=== PATIENT | female | born 1985 | race Caucasian/White ===

== ENCOUNTER 2024-10-17 00:34 | Day surgery (SDC) | payer OTHER, SELFPAY ==
--- NOTE | 2024-10-12 15:21 | PC.NURSE ---
Email sent to Loretta Bill at health system for patient to hold iron supplement as of today 10/12/2024. She emailed back info. sent to approp. area.
--- OUTSIDE RECORDS SUMMARY | 2024-10-17 00:39 | XMS_ITS | Continuity of Care Document ---
Author Organization [facility] Address [address] [place] [address] [address] [place] [address] Phone Care Team Providers Care Border Measurer Name Role Phone YARED HUYNH Unavailable Unavailable Advance Directives Directive Yes / No Effective Date File Name No Information Encounters Encounter Description Practice Location Reason(s) For Visit Diagnoses Date Provider Providers Copied on Encounter [facility], [address] [place] [address] [address], [place], [address], [place] tel:[phone] [facility] Medical [facility] No Information [address], [place], [address], [place]. tel:[phone] Family History Family Member Type Diagnosis Age At Onset No Information Payers Payer name Insurance type Covered alliance party ID Authoriza tion(s) No Information Social History Type Description Quantity Date Captured Comments Sex Female Smoking Status No Information Chief Complaint And Reason For Visit No Information History Of Present Illness Encounter Date Complaint History Of Prese nt Illness No Information Instructions Date Instruction Additional Infor mation No Information Assessments Type Assessment Date No Information
--- OUTSIDE RECORDS SUMMARY | 2024-10-17 00:39 | XMS_ITS | Continuity of Care Document ---
Author Organization [facility] Address [address] [place] [address] Phone Care Team Providers Care Energy Operations Vice President Name Role Phone Patrick COKER, Taty Unavailable Unavailable Advance Directives Directive Yes / No Effective Date File Name No Information Encounters Encounter Description Practice Location Reason(s) For Visit Diagnoses Date Provider Providers Copied on Encounter [facility], [address], [place], [place], [id number], [place] tel:[phone] [facility] No Information Patrick Posey. [address] [address], [place], [place], [id number], [place]. tel:[phone] Referring Provider: True Miles [address] [address], [place], [address]. tel:[phone] Family History Family Member Type Diagnosis Age At Onset No Information Payers Payer name Insurance type Covered democrat ID Authoriza tion(s) [facility] [id number] Social History Type Description Quantity Date Captured Comments Sex Female Smoking Status No Information Chief Complaint And Reason For Visit No Information Reason For Referral Reason For Referral No Information History Of Present Illness Encounter Date Complaint History Of Prese nt Illness No Information Functional Status Date Functional Assessmen t No Information Instructions Date Instruction Additional Infor mation No Information Assessments Type Assessment Date No Information Patient Care Teams Name Effective Dates (start - stop) Status Members No Information
--- OUTSIDE RECORDS SUMMARY | 2024-10-17 00:39 | XMS_ITS | Clinical Summary ---
Author Organization [facility] Address [address] [place] [address] Phone Care Team Providers Care Crimping Machine Operator Name Role Phone Provider, Not On File Primary Care Provider Meme Boyd MD Unavailable Allergies Active Allergy Reactions Criticality Noted Date Comments Iodine Unknown 09/04/2024 Penicillin V Unknown 09/04/2024 Medications ALBUTEROL IN take by inhalation. Active ferrous sulfate 325 (65 Fe) MG Tablet Take 325 mg by mouth daily. Active Ascorbic Acid (VITAMIN C PO) Take by mouth. Active ibuprofen (MOTRIN) 600 MG Tablet Take 600 mg by mouth every 6 hours as needed. Active IMIPRAMINE HCL PO Take by mouth. Active topiramate (TOPAMAX) 100 MG Tablet Take 100 mg by mouth 2 times daily. Active Active Problems Problem Noted Date Diagnosed Date Iron deficiency anemia 09/04/2024 Encounters Date Type Department Care Team Description 09/25/2024 8:30 AM CDT Clinical Support [facility] [address] [place] [address] Iron deficiency anemia, unspecified iron deficiency anemia type (Primary Dx) 09/25/2024 Travel 09/04/2024 10:30 AM CDT Clinical Support [facility] [address] [place] [address] Nurse, Melisa Ford Iron deficiency anemia, unspecified iron deficiency anemia type (Primary Dx) 09/04/2024 9:45 AM CDT Office Visit [facility] [address] [place] [address] Meme Spangler MD Iron deficiency anemia, unspecified iron deficiency anemia type (Primary Dx); Other fatigue 09/04/2024 Telephone [facility] [address] [facility] [address] [place] [address] Meme Spangler MD 09/04/2024 Travel from Last 3 Months Family History Medical History Relation Name Comments Hypertension Father Stroke Father Hypertension Mother Stroke Mother Relation Name Status Comments Father Alive Mother Alive Social History Tobacco Use Types Packs/Day Years Used Date Smoking Tobacco: Former Cigarettes 1 10.1 S tarted: 09/04/2014 Smokeless Tobacco: Never Tobacco Cessation:Counseling Given: No Alcohol Use Standard Drinks/Week Comments Never 0 (1 standard drink = 0.6 oz pur e alcohol) Sexually Active Control Partners Comments Not Currently Comments Unknown Sex and Gender Information Value Date Recorded Sex Assigned at Not on file Legal Sex Female 11:16 AM CDT Gender Identity Not on file Sexual Orientation Not on file Last Filed Vital Signs Vital Sign Reading Time Taken Comments Blood Pressure 122/78 09/04/2024 9:42 AM CDT Pulse 99 09/04/2024 9:42 AM CDT Temperature 37 C (98.6 F) 09/04/2024 9:42 AM CDT Respiratory Rate - - Oxygen Saturation 97% 09/04/2024 9:42 AM CDT Inhaled Oxygen Concentration - - Weight 78.9 kg (174 lb) 09/04/2024 9:42 AM CDT Height 168.9 cm (5' 6.5) 09/04/2024 9:42 AM CDT Body Mass Index 27.66 09/04/2024 9:42 AM CDT Plan of Treatment Upcoming Encounters Date Type Department Care Team (Late st Contact Info) Description 10/30/2024 9:00 AM CDT [facility] [address] [place] [address] Meme Spangler MD [address] [place] [address] Health Maintenance Due Date Last Done Comments Hepatitis C Virus (HCV) Screening 1984 Mammogram 1984 TdaP Immunization 1984 Human Papillomavirus (HPV) Immunization (1 - 3-dose series) 09/22/1999 Hepatitis B Immunization (1 of 3 - 19+ 3-dose series) 09/22/2003 SARS-COV-2 Immunization ( season) 2023 Discussion re Starting/Frequ ency of Mammograms 2024 Influenza Immunization (#1) 2024 Respiratory Syncytial Virus (RSV) Immunization (Adult) (1 - 1-dose 75+ series) 09/22/2059 Meningococcal Immunization (ACWY) Aged Out No longer eligible based on patient's age to complete this topic Pneumococcal Immunization Combined Aged Out No longer eligible based on patient's age to complete this topic Rotavirus Immunization Aged Out No lo nger eligible based on patient's age to complete this topic Procedures Procedure Name Priority Date/Time Associated Diagnosis Comments CBC WITH AUTO DIFF OH Routine 09/04/2024 10:30 AM CDT FERRITIN Routine 09/04/2024 10:30 AM CDT Iron deficiency anemia, unspecified iron deficiency anemia type IRON W/ IRON BINDING CAPACITY OH Routine 09/04/2024 10:30 AM CDT Iron deficiency anemia, unspecified iron deficiency anemia type RETICULOCYTE COUNT (RETIC) Routine 09/04/2024 10:30 AM CDT Iron deficiency anemia, unspecified iron deficiency anemia type from Last 3 Months Results * (ABNORMAL) IRON W/ IRON BINDING CAPACITY OH (09/04/2024 10:30 AM CDT) IRON 33(L) 50 - 212 ug/dL CANCER WOOD DOWEL MACHINE OPERATOR [facility] UIBC 398(H) 155 - 355 ug/dL CANCER WOOD DOWEL MACHINE OPERATOR [facility] TIBC 431 261 - 478 ug/dl CANCER WOOD DOWEL MACHINE OPERATOR [facility] % Saturation 8(L) 20 - 50 % CANCER WOOD DOWEL MACHINE OPERATOR [facility] 09/04/2024 10:3 0 AM CDT Narrative CANCER WOOD DOWEL MACHINE OPERATOR [facility] - 09/05/2024 2:51 PM CDT Release to patient->Immediate Meme Spangler MD LAB SEND OUTS Final Result CANCER WOOD DOWEL MACHINE OPERATOR [facility] [place] [address], * (ABNORMAL) CBC WITH AUTO DIFF OH (09/04/2024 10:30 AM CDT) WBC 6.6 4.0 - 10.0 10*3/uL CANCER WOOD DOWEL MACHINE OPERATOR [facility] HGB 11.1(L) 11.2 - 15.7 g/dL CANCER WOOD DOWEL MACHINE OPERATOR [facility] HCT 36.1 34.1 - 44.9 % CANCER WOOD DOWEL MACHINE OPERATOR [facility] PLT 336 163 - 369 10*3/uL CANCER WOOD DOWEL MACHINE OPERATOR [facility] MPV 11.0 9.4 - 12.4 fL CANCER WOOD DOWEL MACHINE OPERATOR [facility] RBC 4.46 3.93 - 5.22 10*6/uL CANCER WOOD DOWEL MACHINE OPERATOR [facility] MCV 81 79 - 95 fL CANCER WOOD DOWEL MACHINE OPERATOR [facility] MCH 24.9(L) 25.6 - 32.2 pg CANCER WOOD DOWEL MACHINE OPERATOR [facility] MCHC 30.7(L) 32.2 - 36.5 g/dL CANCER WOOD DOWEL MACHINE OPERATOR [facility] RDW 16.3(H) 11.6 - 14.4 % CANCER WOOD DOWEL MACHINE OPERATOR [facility] Neutrophils % 71.7(H) 36.0 - 66.0 % CANCER WOOD DOWEL MACHINE OPERATOR [facility] Lymphocytes % 21.1 19.0 - 40.0 % CANCER WOOD DOWEL MACHINE OPERATOR [facility] Monocytes % 5.4 4.1 - 12.1 % CANCER WOOD DOWEL MACHINE OPERATOR [facility] Eosinophils % 0.9 0.0 - 3.5 % CANCER WOOD DOWEL MACHINE OPERATOR [facility] Basophils % 0.6 0.0 - 1.0 % CANCER WOOD DOWEL MACHINE OPERATOR [facility] Absolute Neutrophils 4.8 1.4 - 6.6 10*3/uL CANCER WOOD DOWEL MACHINE OPERATOR [facility] Absolute Lymphocytes 1.4 0.8 - 4.0 10*3/uL CANCER WOOD DOWEL MACHINE OPERATOR [facility] Absolute Monocytes 0.4 0.2 - 1.2 10*3/uL CANCER WOOD DOWEL MACHINE OPERATOR [facility] Absolute Eosinophils 0.1 0.0 - 0.4 10*3/uL CANCER WOOD DOWEL MACHINE OPERATOR [facility] Absolute Basophils 0.0 0.0 - 0.1 10*3/uL CANCER WOOD DOWEL MACHINE OPERATOR [facility] 09/04/2024 10:3 0 AM CDT us Meme Spangler MD LAB SEND OUTS Final Result Performing Organization Address [facility] de Phone Number CANCER WOOD DOWEL MACHINE OPERATOR [facility] [address] [place] [address], * RETICULOCYTE COUNT (RETIC) (09/04/2024 10:30 AM CDT) Reticulocyte count 0.98 0.50 - 1.70 % CANCER WOOD DOWEL MACHINE OPERATOR [facility] RET-He 29.50 28.20 - 36.60 pg CANCER WOOD DOWEL MACHINE OPERATOR [facility] Comment: RET-He is a direct assessment of incorporation of iron into erythrocyte hemoglobin. It provides an indirect measure of the iron available for new erythropoiesis over past 2-4 days. Blood 09/04/2024 10:3 0 AM CDT us Meme Spangler MD HEMATOLOGY ORDERABLES Final Resu lt Performing Organization Address [facility] de Phone Number [facility] [place] [address], * (ABNORMAL) FERRITIN (09/04/2024 10:30 AM CDT) Ferritin 7(L) 11 - 307 ng/mL [facility] Blood 09/04/2024 10:3 0 AM CDT Narrative [facility] - 09/06/2024 2:28 PM CDT Release to patient->Immediate us Meme Spangler MD CHEMISTRY ORDERABLES Final Resul t Performing Organization Address [facility] de Phone Number [facility] [address] [place] [address], [place] [phone] from Last 3 Months Insurance [employer] Care Teams Crimping Machine Operator Relationship Specialty Start Date End Date Provider, Not On File [place] PCP - General 07/11/24 Meme Spangler MD [address] [place], [place] [address] Consulting Physician Oncology 07/11/24
[2024-10-17 07:47] VITALS: BP 120/76; PULSE 54; RESP 18; TEMP 36.5; O2SAT 100; BMI 25.6
[2024-10-17] MEDS: LACTATED RINGERS 1,000 ML 150 ML IV CONT (07:58)
--- NOTE | 2024-10-17 08:37 | PM.IMHP ---
H&P: HPI History of Present Illness Date/Time: 10/17/24 08:37 Chief Complaint: iron deficiency anemia, positive fit Narrative: this is a 39-year-old woman who presents for EGD and colonoscopy. She has a history of anemia but denies any noticeable hematochezia or melena. She recently had a positive fit test. She has never had a colonoscopy before. She has no first-degree relative family history of colon cancer. She denies acid reflux or heartburn. Review of Systems Review of Systems: All systems reviewed & are unremarkable except as noted in HPI and below Constitutional: Constitutional: Denies chills, Denies fever(s), Denies headache(s) and Denies weight loss Eyes: Eyes: Denies change in vision ENT: Denies dizziness, Denies headache(s), Denies neck mass and Denies throat swelling Cardiovascular: Cardiovascular: Denies chest pain, Denies lightheadedness and Denies dyspnea Respiratory: Respiratory: Denies cough, Denies dyspnea and Denies wheezing Gastrointestinal: Gastrointestinal: Denies abdominal pain, Denies change in bowel habits, Denies nausea and Denies vomiting Genitourinary: Genitourinary: Denies hematuria and Denies dysuria Musculoskeletal: Musculoskeletal: Reports as per HPI Integumentary/Breasts: Skin/Breast: Reports as per HPI Neurologic: Denies dizziness and Denies headache(s) Allergic/Immunologic: Allergic/Immunologic: Denies throat swelling and Denies wheezing PMFSH Social History Social History Living arrangements: incarcerated Meds Home Medications and Allergies Home Medications ?Medication ?Instructions ?Recorded ?Confirmed ?Type albuterol sulfate 90 mcg/actuation 2 inh inhalation QID PRN shortness 10/12/24 10/17/24 History aerosol inhaler (Ventolin HFA) of breath or wheezing ascorbic acid (vitamin C) 1 tablet PO DAILY 10/12/24 10/17/24 History ferrous sulfate 325 mg (65 mg 325 mg PO DAILY 10/12/24 10/17/24 History iron) tablet ibuprofen 600 mg tablet (IBU) 600 mg PO BID PRN pain 10/12/24 10/17/24 History topiramate 100 mg tablet 100 mg PO BID 10/12/24 10/17/24 History Allergies Allergy/AdvReac Type Severity Reaction Status Date / Time iodine Allergy Unknown Unknown Verified 10/17/24 07:46 penicillin V Allergy Unknown Unknown Verified 10/17/24 07:46 Vital Signs Vital Signs - 24 hr 10/17/24 07:47 Temperature 97.7 F Pulse Rate 54 L Respiratory Rate 18 Blood Pressure 120/76 Pulse Oximetry 100 Oxygen Delivery Room Air Exam Const: General: no acute distress and alert Orientation/consciousness: patient oriented x3 HENMT: Head: normocephalic and atraumatic Ears: hearing grossly normal bilaterally Face/Nose/Sinus: Normal nares present Mouth: Yes Normal oral and palatal mucosa present Eyes: Periorbital: periorbital findings normal Sclera: sclerae normal EOM: EOMs intact bilaterally Neck: Neck: normal visual inspection, no lymphadenopathy and trachea midline Chest: Chest palpation & inspection: normal inspection of the chest Resp: Effort & Inspection: normal respiratory effort Auscultation: clear to auscultation bilaterally Cardio: Jugular venous distension: no JVD Rate: regular rate Rhythm: regular rhythm Heart sounds: S1 normal heart sound present and S2 normal heart sound present Peripheral pulses: Peripheral pulses 2+ throughout GI: Inspection: normal to inspection GI Palp: Yes Soft to palpation, No Tenderness to palpation present (GI), No Guarding due to palpation present (GI) and No Rebound tenderness present Percussion: Yes normal to percussion Auscultation: normal bowel sounds : General: Yes no CVA tenderness Back/Spine/Pelvis: Back: no CVA tenderness Neuro: General: patient oriented x3, no focal motor deficits and CN's II-XI intact bilaterally Cognition (Neuro): normal cognition Speech: normal speech Motor exam (neuro): 5/5 motor strength present throughout Extrem: General: capillary refill normal and no clubbing, cyanosis or edema Assessment and Plan Assessment and plan (1) Anemia: Qualifiers: Anemia type: iron deficiency Iron deficiency anemia type: chronic blood loss Qualified Code(s): D50.0 - Iron deficiency anemia secondary to blood loss (chronic) Code(s): D64.9 - Anemia, unspecified Status: Acute Assessment and Plan: I have recommended EGD and colonoscopy. I have discussed the procedure, risks, benefits, and alternatives. Questions were answered. Patient is agreeable to proceed. (2) Positive FIT (fecal immunochemical test): Code(s): R19.5 - Other fecal abnormalities Status: Acute
--- NOTE | 2024-10-17 08:40 | WPDANESEPPF ---
Anes - Initial Pre Proc Eval Procedure: Operation Date: 10/17/24 09:00 Proposed Procedures p Esophagogastroduodenoscopy & Colonoscopy - Harsha Garcia DO Date/Time: 10/17/24 08:40 Surgeon: Harsha Garcia DO Pre Op Diagnosis: Positive fit test and anemia Patient Data Age: 39 Gender: F Height: 1.68 m Weight: 72.1 kg Last Vital Signs Temp 97.7 F 10/17/24 07:47 Pulse 54 L 10/17/24 07:47 Resp 18 10/17/24 07:47 BP 120/76 10/17/24 07:47 Pulse Ox 100 10/17/24 07:47 O2 Del Method Room Air 10/17/24 07:47 Allergies Allergy/AdvReac Type Severity Reaction Status Date / Time iodine Allergy Unknown Unknown Verified 10/17/24 07:46 penicillin V Allergy Unknown Unknown Verified 10/17/24 07:46 Home Medications ?Medication ?Instructions ?Recorded ?Confirmed ?Type albuterol sulfate 90 mcg/actuation 2 inh inhalation QID PRN shortness 10/12/24 10/17/24 History aerosol inhaler (Ventolin HFA) of breath or wheezing ascorbic acid (vitamin C) 1 tablet PO DAILY 10/12/24 10/17/24 History ferrous sulfate 325 mg (65 mg 325 mg PO DAILY 10/12/24 10/17/24 History iron) tablet ibuprofen 600 mg tablet (IBU) 600 mg PO BID PRN pain 10/12/24 10/17/24 History topiramate 100 mg tablet 100 mg PO BID 10/12/24 10/17/24 History Patient hx anesthesia problems: none Family hx anesthesia problems: none Results Review: All pre-operative results and documents have been reviewed as part of the pre-operative evaluation. [facility] Social History Social History Living arrangements: incarcerated Anes - Eval Final PreProcedure Day of Procedure 10/17/24 08:40 Patient weight: overweight Lungs: normal air movement Airway: Mallampati scale class II Neurological: alert and oriented Last oral intake: >/= 8 hours ASA classification: II Emergent: no Anesthetic plan: proceed Anesthesia type and monitoring: general GIVS and standard monitoring Results Review: All pre-operative results and documents have been reviewed as part of the pre-operative evaluation. Ex smoker, quit apprrox 2009, pt w reported anemia. Informed Consent: The patient's anesthetic plan and its attendant risks and benefits were discussed with the patient/family/POA. Questions were solicited and answers provided to the satisfaction of the patient/family/POA.
--- NOTE | 2024-10-17 08:54 | SUR.OPER ---
EGD [id number]. Colonoscopy start time 0857.
[2024-10-17 09:11] VITALS: BP 90/53; PULSE 55; RESP 18; O2SAT 99
[2024-10-17 09:21] VITALS: BP 86/52; PULSE 58; RESP 18; O2SAT 99
[2024-10-17 09:31] VITALS: BP 100/60; PULSE 55; RESP 18; O2SAT 99
== END 2024-10-17 09:46 | disposition home or self-care (01) ==
PROVIDERS: Visit Provider Surgery
PROC: 0DJ08ZZ Inspection of Upper Intestinal Tract, Via Natural or Artificial Opening Endoscopic (ICD-10-PCS; CPT 45378; principal; 2024-10-17 09:00)
DX: R19.5 Other fecal abnormalities (principal); K57.30 Diverticulosis of large intestine without perforation or abscess without bleeding; D64.9 Anemia, unspecified; Z79.51 Long term (current) use of inhaled steroids; Z79.1 Long term (current) use of non-steroidal anti-inflammatories (NSAID); Z87.891 Personal history of nicotine dependence; Z80.0 Family history of malignant neoplasm of digestive organs
CPT/HCPCS: 43235; 45378; J2704; J7120